=== PATIENT | male | born 2000 | race Caucasian/White ===

== ENCOUNTER 2018-09-03 10:52 | Emergency (ER) | payer SELFPAY ==
[2018-09-03 11:20] VITALS: BP 139/61
[2018-09-03] MEDS ORDERED: cefTRIAXone 1 GM, Lidocaine 1% 2.1 ML IM ONE ×2 (11:22)
--- NOTE | 2018-09-03 11:27 | EDM.PDOC ---
ED HPI GENERAL MEDICAL PROBLEM - General Chief Complaint: Skin Complaint Stated Complaint: THUMB SWOLLEN, MERSA Time Seen by Provider: 09/03/18 11:15 Source of Information: Reports: Patient History Limitations: Reports: No Limitations - History of Present Illness INITIAL COMMENTS - FREE TEXT/NARRATIVE: Patient comes into the emergency department with a hand infection. Patient states approximately 1-2 weeks ago he noticed he had a pimple on his left thumb that has slowly gotten worse. He has a history of MRSA infections and feels this is the same. He has decrease in movement due to the swollen thumb and tenderness. He denies having any fevers, chills, diarrhea, or nausea. Onset: Gradual Quality: Reports: Pressure, Throbbing Improves with: Reports: Immobilization Worsens with: Reports: Movement Context: Reports: Other Associated Symptoms: Reports: No Other Symptoms Left Finger-Thumb Pain Score (Numeric/FACES): 10 - Related Data Allergies Allergy/AdvReac Type Severity Reaction Status Date / Time No Known Drug Allergies Allergy Cannot Verified 09/03/18 11:12 Remember Home Meds: Home Meds Sulfamethoxazole/Trimethoprim [Bactrim Ds Tablet] 2 each PO BID #40 tablet 09/03 [Rx] Past Medical History Other Dermatologic History: large weeping wound to left lower leg; MRSA - Infectious Disease History Infectious Disease History: Reports: MRSA Social & Family History - Tobacco Use Smoking Status *Q: Current Every Day Smoker Years of Tobacco use: 4 Packs/Tins Daily: 0.2 ED ROS GENERAL - Review of Systems Review Of Systems: See Below Constitutional: Reports: No Symptoms HEENT: Reports: No Symptoms Respiratory: Reports: No Symptoms Cardiovascular: Reports: No Symptoms Endocrine: Reports: No Symptoms GI/Abdominal: Reports: No Symptoms : Reports: No Symptoms Musculoskeletal: Reports: No Symptoms Skin: Reports: Other Neurological: Reports: No Symptoms Psychiatric: Reports: No Symptoms Hematologic/Lymphatic: Reports: No Symptoms Immunologic: Reports: No Symptoms ED EXAM, SKIN/RASH Exam: See Below Exam Limited By: No Limitations General Appearance: Alert, WD/WN, No Apparent Distress Respiratory/Chest: No Respiratory Distress, No Accessory Muscle Use Back Exam: Normal Inspection Extremities: Normal Inspection, Normal Range of Motion, Increased Warmth (left thumb- redness, pus formation under skin, warm to touch, decrease range motion due to tissue swelling. ) Neurological: Alert, Oriented Psychiatric: Normal Affect, Normal Mood Skin: Warm, Dry, Intact, Normal Color ED SKIN PROCEDURES - I&D Local Anesthesia: Lidocaine: 1% Plain Local Anesthetic Volume: 3cc Area Incised With: Needle Drainage: Purulent, Clear, Bloody, Large Amount Probed to Break Up Loculations: No Complications: No Course - Vital Signs Last Recorded V/S: Last Vital Signs Temp 37.2 C 09/03/18 11:00 Pulse 84 09/03/18 11:00 Resp 16 09/03/18 11:00 BP 139/61 09/03/18 11:00 Pulse Ox 100 09/03/18 11:00 - Orders/Labs/Meds Orders: Active Orders 24 hr Category Date Time Status CULTURE WOUND [RM] Stat Lab 09/03/18 11:24 Ordered Meds: Medications Discontinued Medications Generic Name Dose Route Start Last Admin Trade Name Freq PRN Reason Stop Dose Admin Ceftriaxone Sodium 1 gm/ 0 gm 09/03/18 11:22 Lidocaine HCl 2.1 ml IM 09/03/18 11:23 ONETIME ONE Departure - Departure Time of Disposition: 12:00 Disposition: Home, Self-Care 01 Condition: Good Clinical Impression: Wound infection - Discharge Information *PRESCRIPTION DRUG MONITORING PROGRAM REVIEWED*: Not Applicable *COPY OF PRESCRIPTION DRUG MONITORING REPORT IN PATIENT ELLYN: Not Applicable Instructions: Cellulitis, Adult, MRSA Infection, Adult, Sulfamethoxazole; Trimethoprim, SMX-TMP tablets, Probiotics Forms: ED Department Discharge Additional Instructions: 1. rest 2. increase water intake 3. keep the wound clean 4. Keep the wound covered and dry 5. Wash the wound two times a day for 5-10 days 6. Follow up in the clinic on wednesday for a wound check. It may need to be drained again 7. Take all the antibiotic even if feeling better 8. Take a probiotic to help promote normal GI health 9. Call with any questions or concerns - My Orders Last 24 Hours: My Active Orders 09/03/18 11:24 CULTURE WOUND [RM] Stat - Assessment/Plan Last 24 Hours: My Active Orders 09/03/18 11:24 CULTURE WOUND [RM] Stat Assessment:: 1. wound infection 2. I&D Plan: 1. I & D completed 2. Wound culture sent 3. Rocephin IM ordered 4. Script of bactrim provided to the patient 5. wound care instructions provided 6. Follow up in the Clinic on Wednesday for a wound check 7. Answered all questions and concerns prior to discharge
== END 2018-09-03 12:00 | disposition home or self-care (01) ==
LOC: VM.ED 10:52
DX: L02.512 Cutaneous abscess of left hand (principal); L08.9 Local infection of the skin and subcutaneous tissue, unspecified; F17.210 Nicotine dependence, cigarettes, uncomplicated; Z86.14 Personal history of Methicillin resistant Staphylococcus aureus infection
CPT/HCPCS: 10060; 87070; 87077; 96372; 99283; J0696; J2001

== ENCOUNTER 2021-02-15 01:55 | Emergency (ER) | payer BC ==
[2021-02-15 02:15] VITALS: BP 145/96; PULSE 50
--- NOTE | 2021-02-15 02:23 | EDM.PDOC ---
ED HPI GENERAL MEDICAL PROBLEM - General Chief Complaint: Abdominal Pain Stated Complaint: Right upper abdominal pain Time Seen by Provider: 02/15/21 02:05 Source of Information: Reports: Patient History Limitations: Reports: No Limitations - History of Present Illness INITIAL COMMENTS - FREE TEXT/NARRATIVE: Patient comes in the emergency department with complaint of right upper quadrant abdominal pain. Patient states that it started abruptly approximately 1 hour after he ate noodles around midnight tonight. Patient states that he has had similar right upper quadrant abdominal pain in the past and did have it evaluated. At that time frame patient was told to continue to monitor and watch his gallbladder for if it continues to cause issues he may have to have it removed in the future. Patient denies any fever, chest pain, shortness of breath, genitourinary concerns, or peripheral edema. Patient states that his right upper shoulder had caused some discomfort after the severe onset of pain had begun. Patient states that his pain is subsiding after obtaining pain medications from the ambulance. Patient does also endorse having some severe nausea and diaphoresis when the pain was intense. Onset: Sudden Duration: Improving (after pain medication) Location: Reports: Abdomen Quality: Reports: Sharp, Stabbing Severity: Moderate Improves with: Reports: Medication (see ems report- Fentanyl IV), Rest Worsens with: Reports: Movement Context: Reports: Activity Associated Symptoms: Reports: Diaphoresis, Malaise, Nausea/Vomiting Treatments [employer]: Reports: IV/IO, Other (see below) Other Treatments [employer]: Fentanyl 50mcg IVP RUQ abdomen Pain Score (Numeric/FACES): 7 Right Back Pain Score (Numeric/FACES): 4 - Related Data Allergies Allergy/AdvReac Type Severity Reaction Status Date / Time Penicillins Allergy Hives Verified 02/15/21 02:15 Home Meds: Home Meds . [No Known Home Meds] 02/15/21 [History] Past Medical History - Past Health History Medical/Surgical History: Denies Medical/Surgical History Other Dermatologic History: large weeping wound to left lower leg; MRSA - Infectious Disease History Infectious Disease History: Reports: MRSA Social & Family History - Caffeine Use Caffeine Use: Reports: None ED ROS GENERAL - Review of Systems Review Of Systems: Comprehensive ROS is negative, except as noted in HPI. Constitutional: Denies: Fever, Chills, Malaise HEENT: Reports: No Symptoms Respiratory: Reports: No Symptoms Cardiovascular: Reports: No Symptoms Endocrine: Reports: No Symptoms GI/Abdominal: Reports: Abdominal Pain : Reports: No Symptoms Musculoskeletal: Reports: No Symptoms Skin: Reports: No Symptoms Neurological: Reports: No Symptoms Psychiatric: Reports: No Symptoms Hematologic/Lymphatic: Reports: No Symptoms Immunologic: Reports: No Symptoms ED EXAM, GENERAL - Physical Exam Exam: See Below Exam Limited By: No Limitations General Appearance: Alert, WD/WN, No Apparent Distress Nose: Normal Inspection, Normal Mucosa Head: Atraumatic, Normocephalic Neck: Normal Inspection, Supple, Non-Tender, Full Range of Motion Respiratory/Chest: No Respiratory Distress, Lungs Clear, Normal Breath Sounds, No Accessory Muscle Use, Chest Non-Tender Cardiovascular: Normal Peripheral Pulses, Regular Rate, Rhythm, No Edema GI/Abdominal: Guarding, Tender Back Exam: Normal Inspection, Full Range of Motion Extremities: Normal Inspection, Normal Range of Motion, Non-Tender, Normal Capillary Refill Neurological: Alert, Oriented, Normal Cognition Skin Exam: Warm, Dry, Intact, Normal Color Course - Vital Signs Last Recorded V/S: Last Vital Signs Temp 36.1 C 02/15/21 01:55 Pulse 50 L 02/15/21 01:55 Resp 16 02/15/21 01:55 BP 145/96 H 02/15/21 01:55 Pulse Ox 99 02/15/21 01:55 - Orders/Labs/Meds Orders: Active Orders 24 hr Category Date Time Status Abdomen Pelvis w Cont [CT] Stat Exams 02/15/21 02:15 Taken Labs: Laboratory Tests 02/15/21 02/15/21 02/15/21 Range/Units 02:25 02:25 02:25 WBC 8.1 (4.0-10.0) x10^3/uL RBC 4.01 L (4.5-6.0) x10^6/uL Hgb 13.7 L (14.0-18.0) g/dL Hct 37.3 L (40.0-52.0) % MCV 93.0 (78.0-93.0) fL MCH 34.2 H (26.0-32.0) pg MCHC 36.7 H (32.0-36.0) g/dL RDW Coeff of Courtney 12.9 (10.0-15.0) % Plt Count 167 (130-400) x10^3/uL Immature Gran % (Auto) 0.10 (0.00-0.43) % Neut % (Auto) 57.9 (50.0-80.0) % Lymph % (Auto) 28.6 (25.0-50.0) % [place] % (Auto) 8.0 (2.0-11.0) % Eos % (Auto) 4.9 H (0.0-4.0) % Baso % (Auto) 0.5 (0.2-1.2) % Neut # (Auto) 4.7 (1.8-7.7) x10^3/uL Lymph # (Auto) 2.3 (1.0-4.8) x10^3/uL [place] # (Auto) 0.7 (0.0-0.8) x10^3/uL Eos # (Auto) 0.4 (0.0-0.5) x10^3/uL Baso # (Auto) 0.0 (0.0-0.2) x10^3/uL Immature Gran # (Auto) 0.01 (0.00-0.07) x10^3/uL Sodium 142 (136-145) mmol/L Potassium 3.8 (3.5-5.1) mmol/L Chloride 107 (98-107) mmol/L Carbon Dioxide 33 H (21-32) mmol/L Anion Gap 5.8 (5-15) mmol/L BUN 11 (7-18) mg/dL Creatinine 0.9 (0.70-1.30) mg/dL Est Cr Clr Drug Dosing 152.81 mL/min Estimated GFR (MDRD) > 60 Glucose 110 H (70-99) mg/dL Lactic Acid 0.8 (0.4-2.0) mmol/L Calcium 7.8 L (8.5-10.1) mg/dL Corrected Calcium 8.5 (8.5-10.1) mg/dL Total Bilirubin 0.3 (0.2-1.0) mg/dL AST 16 (15-37) U/L ALT 15 L (16-63) U/L Alkaline Phosphatase 70 (46-116) U/L C-Reactive Protein < 0.2 (<=0.9) mg/dL Total Protein 5.6 L (6.4-8.2) g/dL Albumin 3.1 L (3.4-5.0) g/dL Globulin 2.5 Albumin/Globulin Ratio 1.24 Amylase 75 (25-115) U/L Lipase 135 (73-393) U/L Meds: Medications Discontinued Medications Generic Name Dose Route Start Last Admin Trade Name Rocío PRN Reason Stop Dose Admin Fentanyl 25 mcg 02/15/21 03:34 02/15/21 03:40 Fentanyl 50 Mcg/Ml Sdv IVPUSH 02/15/21 03:35 25 mcg ONETIME ONE Administration Iopamidol 100 ml 02/15/21 03:34 02/15/21 03:35 Iopamidol 612 Mg/Ml 100 Ml Bottle IVPUSH 02/15/21 03:35 100 ml ONETIME ONE Administration - Re-Assessments/Exams Free Text/Narrative Re-Assessment/Exam: 02/15/21 04:40 feeling better. and is requesting to go home Departure - Departure Time of Disposition: 04:40 Disposition: Home, Self-Care 01 Condition: Good Clinical Impression: Cholecystitis - Discharge Information *PRESCRIPTION DRUG MONITORING PROGRAM REVIEWED*: Not Applicable *COPY OF PRESCRIPTION DRUG MONITORING REPORT IN PATIENT ELLYN: Not Applicable Instructions: Cholecystitis, [id number] Referrals: PCP,None [Primary Care Provider] - Forms: ED Department Discharge Additional Instructions: 1. rest 2. increase your water intake 3. Continue all at home medications 4. Activity and diet as tolerated 5. Can take over the counter Tylenol for any pain or discomfort 6. Follow up with PCP if symptoms continue, return, or progress 7. Call with any questions or concerns 8. You will need to follow up with the surgeon for further evaluation and removal Sepsis Event Note (ED) - Evaluation Sepsis Screening Result: No Definite Risk - Focused Exam Vital Signs: Vital Signs Temp Pulse Resp BP Pulse Ox 02/15/21 01:55 36.1 C 50 L 16 145/96 H 99 - My Orders Last 24 Hours: My Active Orders 02/15/21 02:15 Abdomen Pelvis w Cont [CT] Stat - Assessment/Plan Last 24 Hours: My Active Orders 02/15/21 02:15 Abdomen Pelvis w Cont [CT] Stat Assessment:: 1. abdominal pain Plan: 1. Labs completed in the ER. Results reviewed with the patient 2. CT scan completed in the ER. Results reviewed with the patient 3. IV initiated in the emergency department 4. IV fluids provided 5. Pain medication given for severe pain and discomfort-Fentanyl given 6. Zofran offered in the ER to help with nausea if it does arise [facility]. [facility] on if symptoms progress with a surgeon 8. Patient and nursing staff was updated regarding the plan of care 9. Patient and family are agreeable to the above plan of care 10. All questions and concerns were addressed with the patient and family prior to discharge
[2021-02-15 02:56] LABS: CHLORIDE,CL 107 mmol/L (98-107); SODIUM,NA 142 mmol/L (136-145)
[2021-02-15 02:57] LABS: ANION GAP 5.8 mmol/L (5-15)
[2021-02-15] MEDS ORDERED: Iopamidol 755 Mg/ML 100 ML Bottle IVPUSH ONE (03:32)
[2021-02-15] MEDS: Iopamidol 612 MG/ML 100 ML Bottle IVPUSH ONE (03:35)
[2021-02-15] MEDS: fentaNYL 50 MCG/ML SDV IVPUSH ONE (03:40)
--- NOTE | 2021-02-15 09:36 | CT ---
[id number] CT/CT Abdomen Pelvis W IV EXAM: ABDOMEN AND PELVIS CT WITH CONTRAST INDICATION: RIGHT UPPER QUADRANT PAIN. COMPARISON: None. DISCUSSION: The gallbladder is thick-walled and there is a small amount of fluid posterior to the gallbladder on the right margin of the duodenum, ventral to the right kidney, and medial to the right lobe of the liver. Findings are suspicious for acute cholecystitis, but calculi are not evident by CT. Consider ultrasound and/or HIDA scan. Prominent food debris within the stomach. Mildly elevated stool volume in the proximal colon. Mild small bowel thickening described on the preliminary report likely relates to incomplete distention rather than enteritis. The liver, spleen, pancreas, adrenal glands, kidneys, small bowel, and the appendix are unremarkable. No adenopathy or free air. Scattered Schmorl's nodes in the spine. IMPRESSION: 1. The gallbladder is mildly thick-walled and there is adjacent fluid suspicious for acute cholecystitis. No stones are evident by CT and ultrasound and/or HIDA scan may be useful if clinical signs and symptoms are equivocal. 2. Mild apparent small bowel wall thickening, favor incomplete distention over enteritis. Raffi Ferrera MD 02/15/21 [id number] Thank you for allowing us to participate in the care of your patient.
== END 2021-02-15 04:50 | disposition home or self-care (01) ==
LOC: VM.ED 01:55
DX: K81.9 Cholecystitis, unspecified (principal); Z88.0 Allergy status to penicillin
CPT/HCPCS: 36415; 74177; 80053; 82150; 83605; 83690; 85025; 86140; 96374; 99283; 99285-25; J3010; Q9967